=== PATIENT | female | born 1950 | race Caucasian/White ===

== ENCOUNTER 2019-01-06 18:10 | Emergency (ER) | payer SELFPAY ==
[2019-01-06] MEDS: KETOROLAC 30 MG INJ IM (20:35)
== END 2019-01-06 21:54 | disposition home or self-care (01) ==
LOC: FTE 18:10
DX: S99.922A Unspecified injury of left foot, initial encounter (principal); X50.1XXA Overexertion from prolonged static or awkward postures, initial encounter; Y92.9 Unspecified place or not applicable
CPT/HCPCS: 73610; 73630-LT; 96372; 99284-25